=== PATIENT | male | born 1945 | race Caucasian/White ===

== ENCOUNTER → 2019-12-22 | Outpatient (CLI) | payer MEDICARE | END | disposition home or self-care (01) | LOC: RAH 10:35 | PROVIDERS: ATTEND Physical Medicine & Rehabilitation | DX: I70.213 Atherosclerosis of native arteries of extremities with intermittent claudication, bilateral legs (principal) | CPT/HCPCS: 93925 ==

== ENCOUNTER → 2020-02-29 | Outpatient (CLI) | payer MEDICARE | END | disposition home or self-care (01) | LOC: SHCH 11:07 | PROVIDERS: ATTEND Internal Medicine Cardiovascular Disease | DX: I65.23 Occlusion and stenosis of bilateral carotid arteries (principal); I25.10 Atherosclerotic heart disease of native coronary artery without angina pectoris | CPT/HCPCS: 93880 ==

== ENCOUNTER → 2022-01-27 | Outpatient (CLI) | payer OTHER | END | disposition home or self-care (01) | LOC: RAH 12:30 | PROVIDERS: ATTEND Internal Medicine Cardiovascular Disease | DX: Z13.6 Encounter for screening for cardiovascular disorders (principal); I51.5 Myocardial degeneration | CPT/HCPCS: 75571 ==

== ENCOUNTER → 2022-06-24 | Outpatient (CLI) | payer MEDICARE | END | disposition home or self-care (01) | LOC: RAH 10:30 | PROVIDERS: ATTEND Psychiatry & Neurology Neurocritical Care | DX: I65.21 Occlusion and stenosis of right carotid artery (principal); R47.1 Dysarthria and anarthria; R47.81 Slurred speech; Z95.820 Peripheral vascular angioplasty status with implants and grafts; Z86.73 Personal history of transient ischemic attack (TIA), and cerebral infarction without residual deficits | CPT/HCPCS: 93880 ==

== ENCOUNTER → 2023-02-24 | Outpatient (CLI) | payer MEDICARE | END | disposition home or self-care (01) | LOC: SHCH 10:55 | PROVIDERS: ATTEND Internal Medicine Cardiovascular Disease | DX: I65.23 Occlusion and stenosis of bilateral carotid arteries (principal); I25.10 Atherosclerotic heart disease of native coronary artery without angina pectoris; Z95.828 Presence of other vascular implants and grafts | CPT/HCPCS: 93880 ==

== ENCOUNTER → 2023-06-01 | Outpatient (CLI) | payer MEDICARE ==
[~2023-06-01] MED LIST: IOHEXOL 350 MG/ML 100ML INFUS..BTL IV ONE; IOHEXOL-350 50ML VIAL IV ONE
== END | disposition home or self-care (01) ==
LOC: RAH 08:43
PROVIDERS: ATTEND Internal Medicine Cardiovascular Disease
DX: I70.203 Unspecified atherosclerosis of native arteries of extremities, bilateral legs (principal); K57.30 Diverticulosis of large intestine without perforation or abscess without bleeding; K76.0 Fatty (change of) liver, not elsewhere classified; M47.815 Spondylosis without myelopathy or radiculopathy, thoracolumbar region; K56.41 Fecal impaction
CPT/HCPCS: 75635; Q9967 ×2

== ENCOUNTER 2023-08-20 06:37 | Day surgery (SDC) | payer MEDICARE ==
[2023-08-17 11:40] LABS: BASOPHILS # (AUTO) 0.04 K/uL (0.00-0.20); BASOPHILS % (AUTO) 0.4 % (0.0-5.0); EOSINOPHILS # (AUTO) 0.16 K/uL (0.00-0.70); EOSINOPHILS % (AUTO) 1.7 % (0.0-8.0); HEMATOCRIT 46.5 % (42-54); IMMATURE GRANULOCYTE ABSOLUTE 0.03 K/uL (0-1); LYMPHOCYTES # (AUTO) 1.1 K/uL (1.0-4.8); LYMPHOCYTES % (AUTO) 11.4 % (21.0-51.0); MEAN CORPUSCULAR HEMOGLOBIN 32.8 pg (27.0-33.0); MEAN CORPUSCULAR HGB CONC 33.1 g/dL (32.0-36.0); MEAN CORPUSCULAR VOLUME 99.1 fL (79-99); MONOCYTES # (AUTO) 0.9 K/uL (0.1-1.0); MONOCYTES % (AUTO) 9.9 % (3.0-13.0); NEUTROPHILS # (AUTO) 7.2 K/uL (1.8-7.7); NEUTROPHILS % (AUTO) 76.3 % (40.0-77.0); PLATELET COUNT (AUTO) 220 K/uL (130-400); RED BLOOD CELL COUNT(AUTO) 4.69 MIL/uL (4.50-6.20); RED CELL DISTRIBUTION WIDTH 12.6 % (11.0-15.5); WHITE BLOOD COUNT (AUTO) 9.5 K/uL (4.8-10.8)
[2023-08-17 11:42] VITALS: BP 132/71; PULSE 63; RESP 18
[2023-08-17 11:47] LABS: CREATININE 1.3 mg/dL (0.5-1.3); POTASSIUM 5.4 mmol/L (3.5-5.1)
[2023-08-17 11:50] LABS: APPEARANCE,URINE CLEAR (CLEAR); BILIRUBIN,URINE NEGATIVE (NEGATIVE); COLOR,URINE LIGHT-YELLOW (YELLOW); GLUCOSE, URINE (UA) NEGATIVE (NEGATIVE); KETONES,URINE NEGATIVE (NEGATIVE); LEUKOCYTE ESTERASE ,URINE NEGATIVE Leu/uL (NEGATIVE); NITRATE,URINE NEGATIVE (NEGATIVE); OCCULT BLOOD,URINE NEGATIVE (NEGATIVE); PH,URINE 5.5 (5.0-8.0); PROTEIN,URINE NEGATIVE (NEGATIVE); UROBILINOGEN,URINE 0.2 mg/dL (0.2-1.0)
[2023-08-17 11:51] LABS: INR <= 0.93 (0.85-1.15); PROTHROMBIN TIME 10.5 SEC (9.6-11.6)
[2023-08-17 11:52] LABS: PARTIAL THROMBOPLASTIN TIME 27.1 SEC (26.3-35.5)
[2023-08-17 11:53] LABS: ADD UA MICROSCOPIC NO
[2023-08-17 12:11] LABS: B-TYPE NATRIURETIC PEPTIDE 9 pg/mL (0-100)
[~2023-08-20] VITALS: Ht 177.8 cm; Wt 102.2 kg
[2023-08-20] VITALS (11 sets, daily range): BP systolic 111–145; BP diastolic 44–98; PULSE 59–71; RESP 14–18
[~2023-08-20 06:37] MED LIST changes: +AEC81 PO; +ALPR1TAB10 PO; +ASCO100T12 PO; +ATOR40TA71 PO; +CLOP75TA32 PO; +FISH1CAP63 PO; -IOHEXOL 350 MG/ML 100ML INFUS..BTL IV ONE; -IOHEXOL-350 50ML VIAL IV ONE; +IRBE300T26 PO; +LEVO88CA4 PO; +LEVOCETIRIZINE PO; +MONT-39 PO; +MULT-1289 PO; +PRILOSEC PO; +PROBIOTIC PO; +SERT-440 PO; +TAMS-1 PO; +TRAZ-187 PO; +TRULICITY SQ; +TURM500C13 PO; +VITAMIN B12 PO; +ZINC PO
[2023-08-20 07:04] LABS: CREATININE 1.3 mg/dL (0.5-1.3); POTASSIUM 4.7 mmol/L (3.5-5.1)
[2023-08-20] MEDS: 0.9%NACL 1000ML 1,000 ML IV ONE (07:35)
[2023-08-20] MEDS ORDERED: MIDAZOLAM HCL 1 MG/ML 2ML VIAL ONE ×2 (09:16→09:41)
[2023-08-20] MEDS ORDERED: LIDOCAINE HCL 400MG/20ML VIAL ONE (09:16)
[2023-08-20] MEDS ORDERED: IODIXANOL 320 MG/ML 100 ML VIAL ONE (09:16)
[2023-08-20] MEDS ORDERED: HEPARIN 10,000 UNIT/10ML (1,000 UNIT/ML) VIAL ONE (09:17)
[2023-08-20] MEDS ORDERED: VERAPAMIL HCL 2.5 MG/ML VIAL ONE (09:17)
[2023-08-20] MEDS ORDERED: FENTANYL CITRATE PF 50 MCG/1 ML 2ML VIAL ONE (09:23)
[2023-08-20] MEDS ORDERED: NITROGLYCERIN 50MG VIAL ONE (09:25)
[2023-08-20] MEDS ORDERED: DEXTROSE 50%-WATER 50 ML DISP.SYRIN IV PRN (11:30)
[2023-08-20] MEDS ORDERED: GLUCAGON 1MG KIT 1 MG ML IM PRN (11:30)
[2023-08-20] MEDS ORDERED: 0.9%NACL 1000ML 1,000 ML IV SCH (11:30)
== END 2023-08-20 15:35 | disposition home or self-care (01) ==
LOC: DAH 06:37
PROVIDERS: ATTEND Student in an Organized Health Care Education/Training Program
DX: I73.9 Peripheral vascular disease, unspecified (principal); I25.10 Atherosclerotic heart disease of native coronary artery without angina pectoris; I10 Essential (primary) hypertension; E78.5 Hyperlipidemia, unspecified; E03.9 Hypothyroidism, unspecified; Z95.5 Presence of coronary angioplasty implant and graft; Z83.3 Family history of diabetes mellitus; Z79.82 Long term (current) use of aspirin; Z79.899 Other long term (current) drug therapy; Z98.890 Other specified postprocedural states
CPT/HCPCS: 80048 ×2; 83880; 85025; 85610; 85730; 81003; 36415 ×2; 71045; 93005; 75710; 36245; 96360; 96361; 82948 ×2; C1887; C1769 ×2; C1894; A4649; J3010; J3490 ×3; J7030; J1644 ×2; J2250 ×2; Q9967; A4215; A4222; A4221; A4663; A4216; A4606; A4223 ×3; 36247; 75716; 99156; 99157

== ENCOUNTER → 2024-05-05 | Outpatient (CLI) | payer MEDICARE ==
--- NOTE | 2024-05-05 13:39 | HMCSR ---
APPROVED REPORT Laterality: Bilateral Indications I25.10 Doppler Spectral Velocity Analysis PSV / EDVPSV / EDV ECA (R) 121 / cm/sECA (L) 401 / cm/s dICA (R) 58 / 19 cm/sdICA (L) 70 / 28 cm/s Michelle (R) 78 / 20 cm/smICA (L) 73 / 24 cm/s pICA (R) 64 / 15 cm/spICA (L) 78 / 20 cm/s dCCA (R) 68 / 13 cm/sdCCA (L) 50 / 13 cm/s mCCA (R) 82 / 13 cm/smCCA (L) 65 / cm/s pCCA (R) 110 / 15 cm/spCCA (L) 73 / 23 cm/s Vert (R) 65 / cm/sVert (L) 20 / cm/s Subl. (R) 118 / cm/sSubl. (L) 131 / cm/s ICA/CCA 0.71ICA/CCA 1.07 Technologist Impression Increased velocities in LT. ECA 401 cm/s LT. ECA stent seen, appears patent, without in stent stenosis. Mild calcified plaque seen bilaterally. Antegrade flow on bilateral vertebral arteries. Conclusion As above. Conclusion As above.
== END | disposition home or self-care (01) ==
LOC: SHCH 10:13
PROVIDERS: ATTEND Internal Medicine Cardiovascular Disease
DX: I25.10 Atherosclerotic heart disease of native coronary artery without angina pectoris (principal); I65.23 Occlusion and stenosis of bilateral carotid arteries
CPT/HCPCS: 93880